=== PATIENT | female | born 1985 | race Caucasian/White ===

== ENCOUNTER 2016-12-29 13:25 | Emergency (ER) | payer OTHER ==
--- NOTE | ~2016-12-29 | CR142 ---
[facility] A Service of [facility] RADIOLOGY TEXT RESULTS PATIENT: MIKE FITZPATRICK LOCATION: CFTX : 81 UNIT #: [id number] AGE: [address]: Christie Dumont SEX: F ORDER DR: [id number] [facility] [address] [place], [place] [address] [id number] E MR#: [id number] Acc #: [id number] NAME: MIKE FITZPATRICK : 1985 SEX: F STUDY DATE/TIME: 12/29/2016 13:11 UNIT: [facility] ROOM: STUDY DESCRIPTION: CR Hand Min 3 Views Rt Attending Physician: Christie Dumont P.A.-C. Ordering Physician: Christie Dumont P.A.-C. Primary Care Physician: Elian Cui M.D. MEDICAL IMAGING REPORT This report is preliminary unless electronic signature is present EXAM CR hand min 3 views Rt HISTORY Right hand pain. Punching injury. COMPARISON 3 views of the right hand compared to 02/18/2007. FINDINGS There is no acute fracture or dislocation. Alignment is anatomic. No foreign body. IMPRESSION Negative right hand. Dictated by... Miguel Angel Peña M.D. THIS IS AN ELECTRONICALLY VERIFIED REPORT Miguel Angel Peña M.D. at 12/30/2016 10:44 AM Ivan TD: 12/30/2016 09:37 JOB #: [id number] MEDICAL IMAGING REPORT Page 1 of 1 COPY
== END 2016-12-29 13:56 | disposition home or self-care (01) ==
LOC: CFTX 13:25
DX: S60.221A Contusion of right hand, initial encounter (principal); F17.210 Nicotine dependence, cigarettes, uncomplicated; W26.8XXA Contact with other sharp object(s), not elsewhere classified, initial encounter; Y92.009 Unspecified place in unspecified non-institutional (private) residence as the place of occurrence of the external cause
CPT/HCPCS: 29125; 73130; 96372; 99283; J1885